=== PATIENT | female | born 1955 | race Caucasian/White ===

== ENCOUNTER 2019-12-27 12:55 | Emergency (ER) | payer BC, MEDICARE ==
[~2019-12-27] VITALS: Ht 167.6 cm; Wt 92.0 kg
[~2019-12-27 12:55] MED LIST: BUDE10.2 INH; FLUO10CA29 PO; PRAV20TA4 PO; TEMA15CA PO
[2019-12-27 13:43] LABS: URINE HCG NEGATIVE (NEG)
[2019-12-27 13:45] LABS: CLARITY,URINE SLIGHTLY CLOUDY (Clear); COLOR,URINE YELLOW (Yellow); GLUCOSE, URINE NEGATIVE (Neg); KETONES,URINE NEGATIVE (Neg); LEUKOCYTE ESTERASE ,URINE SMALL (Neg); NITRITES, URINE NEGATIVE (Neg); OCCULT BLOOD,URINE SMALL (Neg); PH,URINE 6.5 (4.8-8.0); PROTEIN,URINE NEGATIVE (Neg); UROBILINOGEN,URINE 0.2 E.U/dL (0.2-1.0)
[2019-12-27 13:46] LABS: UA COLLECTION TYPE CLN CATCH MIDSTREAM
[2019-12-27 13:48] LABS: BASOPHILS # (AUTO) 0.1 X10'3 (0-0.2); BASOPHILS % (AUTO) 0.6 % (0-1); EOSINOPHILS % (AUTO) 0.3 % (0-6); HEMATOCRIT 45.2 % (35.0-45.0); HEMOGLOBIN 14.7 g/dl (12.0-16.0); LYMPHOCYTES # (AUTO) 3.2 X10'3 (1.1-4.8); LYMPHOCYTES % (AUTO) 26.1 % (21-51); MEAN CORPUSCULAR HEMOGLOBIN 29.2 PG (27.0-31.0); MEAN CORPUSCULAR HGB CONC 32.5 g/dL (33.0-36.5); MEAN CORPUSCULAR VOLUME 89.8 FL (78-98); MEAN PLATELET VOLUME 8.2 FL (7.4-10.4); MONOCYTES # (AUTO) 0.9 X10'3 (0-0.9); MONOCYTES % (AUTO) 7.4 % (2-12); NEUTROPHILS % (AUTO) 65.6 % (42-75); PLATELET COUNT 240 X10'3 (140-440); RED BLOOD COUNT 5.03 X10'6 (4.20-5.60); RED CELL DISTRIBUTION WIDTH 14.4 % (11.5-14.5); WHITE BLOOD COUNT 12.1 X10'3 (4.5-11.0)
[2019-12-27 13:50] LABS: BACTERIA,URINE 1+ /HPF (Neg); MUCUS STRANDS FEW /LPF (Neg); RBC,URINE 0-2 /HPF (0-2); SQUAMOUS EPITHELIAL CELL,UR FEW /LPF (FEW); WBC CLUMPS,URINE MODERATE /HPF (NEGATIVE); WBC,URINE 50-100 /HPF (0-4)
[2019-12-27 13:51] LABS: ALANINE AMINOTRANSFERASE 16 U/L (12-78); ALBUMIN 3.4 G/DL (3.4-5.0); ALBUMIN/GLOBULIN RATIO 0.8 (1.1-1.5); ALKALINE PHOSPHATASE 93 IU/L (46-116); ANION GAP 6 (8-16); ASPARTATE AMINO TRANSFERASE 12 U/L (10-37); BILIRUBIN,TOTAL 0.7 MG/DL (0.1-1.0); BLOOD UREA NITROGEN 8 MG/DL (7-18); BUN/CREATININE RATIO 8.7 (6.6-38.0); CHLORIDE 101 MMOL/L (99-107); CREATININE 0.92 MG/DL (0.40-0.90); GLUCOSE 137 MG/DL (70-104); LIPASE 103 U/L (73-393); POTASSIUM 3.6 MMOL/L (3.5-5.1); SODIUM 136 MMOL/L (135-145); TOTAL CARBON DIOXIDE 28.7 MMOL/L (24-32); TOTAL PROTEIN 7.6 G/DL (6.4-8.2); eGFR 62 ML/MIN
[2019-12-27] MEDS ORDERED: normal saline 1000ML IV soln IVB ONE (14:00)
[2019-12-27] MEDS ORDERED: ondansetron/PF 4mg/2ml inj IV ONE (14:00)
[2019-12-27] MEDS ORDERED: metroNIDAZOLE-Flagyl 500mg/NS 100 ML IV STA (14:39)
[2019-12-27] MEDS ORDERED: amox tr/potassium clavulanate 875/125mg TAB PO ONE (14:40)
[2019-12-27] MEDS ORDERED: ONDA4TAB6 PO (14:44)
[2019-12-27] MEDS ORDERED: METR500T PO (14:44)
[2019-12-27] MEDS ORDERED: AMOX-422 PO (14:44)
[2019-12-27] MEDS ORDERED: morphine 4 MG/ML inj SYRINge IV ONE (15:45)
[2019-12-27 17:07] VITALS: BP 140/76
--- NOTE | 2019-12-30 10:00 | NUR ---
PT CALLED PER DR KEITH TO SEE HOW SHE WAS DOING. PT STATES THAT SHE IS NOT FEELING ANY BETTER AND THE ABX IS MAKING HER VOMIT. PT ADVISED THAT SHE MIGHT WANT TO RETURN TO THE ER FOR FURTHER EVALUATION IS ADDIE IS UNABLE TO CONTACT HER PMD. PT STATES THAT SHE WOULD HAVE TO WAIT TILL HER COMES BACK HOME AND WILL MOST LIKELY COME IN THIS AFTERNOON.
[2020-02-04] MEDS ORDERED: ONDA4TAB6 PO (13:08)
[2020-02-04] MEDS ORDERED: HYDR-4353 PO (13:08)
[2020-02-04] MEDS ORDERED: AMOX-422 PO (13:08)
== END 2019-12-27 17:08 | disposition home or self-care (01) ==
LOC: ER 12:55
DX: K57.32 Diverticulitis of large intestine without perforation or abscess without bleeding (principal); R11.2 Nausea with vomiting, unspecified; R10.32 Left lower quadrant pain; Z88.5 Allergy status to narcotic agent
CPT/HCPCS: 96361; 96365; 96375; 99284; J2270; J2405; J3490; J7030; 36415; 74176; 80053; 81001; 81025; 83690; 85025; 87077; 87088; 87186

== ENCOUNTER 2019-12-30 12:25 | Inpatient (IN) | payer MEDICARE ==
[~2019-12-30] VITALS: Ht 167.6 cm; Wt 92.7 kg
[~2019-12-30 12:25] MED LIST changes: +AMOX-422 PO; +METR500T PO; +ONDA4TAB6 PO
[2019-12-30 13:19] LABS: BASOPHILS % (AUTO) 0.4 % (0-1); EOSINOPHILS # (AUTO) 0.1 X10'3 (0-0.9); EOSINOPHILS % (AUTO) 1.2 % (0-6); HEMATOCRIT 43.3 % (35.0-45.0); HEMOGLOBIN 14.1 g/dl (12.0-16.0); LYMPHOCYTES # (AUTO) 2.2 X10'3 (1.1-4.8); LYMPHOCYTES % (AUTO) 24.2 % (21-51); MEAN CORPUSCULAR HEMOGLOBIN 29.5 PG (27.0-31.0); MEAN CORPUSCULAR HGB CONC 32.6 g/dL (33.0-36.5); MEAN CORPUSCULAR VOLUME 90.2 FL (78-98); MEAN PLATELET VOLUME 8.4 FL (7.4-10.4); MONOCYTES # (AUTO) 0.7 X10'3 (0-0.9); MONOCYTES % (AUTO) 7.7 % (2-12); NEUTROPHILS # (AUTO) 6.1 X10'3 (1.8-7.7); NEUTROPHILS % (AUTO) 66.5 % (42-75); PLATELET COUNT 277 X10'3 (140-440); WHITE BLOOD COUNT 9.2 X10'3 (4.5-11.0)
[2019-12-30 13:25] LABS: ALANINE AMINOTRANSFERASE 14 U/L (12-78); ALBUMIN 3.2 G/DL (3.4-5.0); ALBUMIN/GLOBULIN RATIO 0.8 (1.1-1.5); ALKALINE PHOSPHATASE 80 IU/L (46-116); ANION GAP 6 (8-16); ASPARTATE AMINO TRANSFERASE 15 U/L (10-37); BILIRUBIN,TOTAL 0.3 MG/DL (0.1-1.0); BLOOD UREA NITROGEN 5 MG/DL (7-18); BUN/CREATININE RATIO 6.1 (6.6-38.0); CALCIUM 9.3 MG/DL (8.5-10.1); CHLORIDE 103 MMOL/L (99-107); CREATININE 0.82 MG/DL (0.40-0.90); GLUCOSE 112 MG/DL (70-104); LIPASE 107 U/L (73-393); POTASSIUM 4.1 MMOL/L (3.5-5.1); SODIUM 139 MMOL/L (135-145); TOTAL CARBON DIOXIDE 30.2 MMOL/L (24-32); TOTAL PROTEIN 7.1 G/DL (6.4-8.2); eGFR 71 ML/MIN
[2019-12-30] MEDS ORDERED: morphine 4 MG/ML inj SYRINge IV ONE (14:45)
[2019-12-30] MEDS ORDERED: iohexol 300mg/ml 100ml inj. ONE (14:59)
[2019-12-30] MEDS ORDERED: piperacillin/tazo 3.375gm/50ml 50 ML IV SCH (16:45)
[2019-12-30] MEDS ORDERED: piperacillin/tazo 3.375gm/50ml 50 ML IV ONE (16:49)
[2019-12-30 17:12] LABS: URINE HCG NEGATIVE (NEG)
[2019-12-30 17:14] LABS: CLARITY,URINE CLEAR (Clear); COLOR,URINE YELLOW (Yellow); GLUCOSE, URINE NEGATIVE (Neg); KETONES,URINE 15 mg/dl (Neg); LEUKOCYTE ESTERASE ,URINE NEGATIVE (Neg); NITRITES, URINE NEGATIVE (Neg); OCCULT BLOOD,URINE NEGATIVE (Neg); PH,URINE 6.5 (4.8-8.0); PROTEIN,URINE NEGATIVE (Neg); UROBILINOGEN,URINE 0.2 E.U/dL (0.2-1.0)
[2019-12-30] MEDS ORDERED: magnesium hydroxide 30ml (MOM) UD suspension PO PRN (17:15)
[2019-12-30] MEDS ORDERED: acetaminophen 325mg tablet PO PRN (17:15)
[2019-12-30] MEDS ORDERED: mag hydrox/Alum hydrox/simeth 30ml oral suspension PO PRN (17:15)
[2019-12-30] MEDS ORDERED: FLUO20CA39 PO (17:21)
[2019-12-30 17:25] LABS: UA COLLECTION TYPE CLN CATCH MIDSTREAM
[2019-12-30] MEDS: normal saline 1000ml 1,000 ML IV SCH (17:37)
[2019-12-30] MEDS: HYDROmorphone 1 mg/ml syringe IV PRN (17:52)
--- NOTE | 2019-12-30 21:02 | NUR ---
PT WITH MINIMAL PAIN AND STABLE VS. AWAITING IPA. PT UP TO BR TO VOID. AMBULATING WITH STEADY GAIT. PT IS POLITE AND COOPERATIVE WITH CARE.
[2019-12-30] MEDS: ondansetron/PF 4mg/2ml inj IV PRN (21:33)
--- NOTE | 2019-12-30 21:35 | NUR ---
pt nauseauated, rnmila , to check on availability of antiemetic and get it to her
[2019-12-30] MEDS: heparin, porcine 5000 units/ml vial SQ SCH (21:40)
[2019-12-31] VITALS (7 sets, daily range): BP systolic 93–146; BP diastolic 40–71
[2019-12-31] MEDS: piperacillin/tazo 4.5gm/100ml 100 ML IV SCH ×3 (00:57→16:36)
[2019-12-31] MEDS: normal saline 1000ml 1,000 ML IV SCH ×3 (00:57→23:12)
[2019-12-31] MEDS: HYDROmorphone 1 mg/ml syringe IV PRN ×3 (00:58→21:11)
--- NOTE | 2019-12-31 06:49 | NUR ---
Patient in room PCU 3017. I have received report from Len HICKEY and had the opportunity to ask questions and assume patient care.
[2019-12-31 07:22] LABS: BASOPHILS % (AUTO) 0.5 % (0-1); EOSINOPHILS # (AUTO) 0.1 X10'3 (0-0.9); EOSINOPHILS % (AUTO) 1.9 % (0-6); HEMATOCRIT 37.3 % (35.0-45.0); HEMOGLOBIN 12.1 g/dl (12.0-16.0); LYMPHOCYTES # (AUTO) 2.1 X10'3 (1.1-4.8); LYMPHOCYTES % (AUTO) 32.2 % (21-51); MEAN CORPUSCULAR HEMOGLOBIN 29.2 PG (27.0-31.0); MEAN CORPUSCULAR HGB CONC 32.5 g/dL (33.0-36.5); MEAN CORPUSCULAR VOLUME 89.9 FL (78-98); MEAN PLATELET VOLUME 8.7 FL (7.4-10.4); MONOCYTES # (AUTO) 0.5 X10'3 (0-0.9); MONOCYTES % (AUTO) 8.3 % (2-12); NEUTROPHILS # (AUTO) 3.7 X10'3 (1.8-7.7); NEUTROPHILS % (AUTO) 57.1 % (42-75); PLATELET COUNT 226 X10'3 (140-440); RED BLOOD COUNT 4.15 X10'6 (4.20-5.60); RED CELL DISTRIBUTION WIDTH 13.8 % (11.5-14.5); WHITE BLOOD COUNT 6.5 X10'3 (4.5-11.0)
[2019-12-31 07:24] LABS: ALBUMIN 2.7 G/DL (3.4-5.0); ANION GAP 7 (8-16); BLOOD UREA NITROGEN 7 MG/DL (7-18); BUN/CREATININE RATIO 8.2 (6.6-38.0); CALCIUM 8.5 MG/DL (8.5-10.1); CHLORIDE 105 MMOL/L (99-107); CREATININE 0.85 MG/DL (0.40-0.90); GLUCOSE 106 MG/DL (70-104); POTASSIUM 3.5 MMOL/L (3.5-5.1); SODIUM 141 MMOL/L (135-145); TOTAL CARBON DIOXIDE 28.9 MMOL/L (24-32); eGFR 68 ML/MIN
[2019-12-31] MEDS: FLUoxetine 20mg capsule PO SCH (08:38)
[2019-12-31] MEDS: heparin, porcine 5000 units/ml vial SQ SCH ×2 (08:39→18:54)
[2019-12-31] MEDS: ondansetron/PF 4mg/2ml inj IV PRN (11:18)
--- NOTE | 2019-12-31 12:31 | NUR ---
Paged Dr. Luis
--- NOTE | 2019-12-31 12:38 | NUR ---
Paged Dr. Luis. Toyin Block. [id number]. HOLLEY Carter just spoke with the patient and said he is going to wait a few days on getting the second CTA. Oscar [id number]
[2019-12-31] MEDS: HYDROmorphone inj. 0.5 MG/0.5 ML DISP.SYRIN IV PRN (17:28)
--- NOTE | 2019-12-31 18:16 | NUR ---
Problems reprioritized. Patient report given, questions answered & plan of care reviewed with Len RN.
[2019-12-31] MEDS: diatr meglu/diatrizoate 30ml oral sol.-(3 dose) bottle PO SCH (21:11)
[2020-01-01] MEDS: piperacillin/tazo 4.5gm/100ml 100 ML IV SCH ×4 (00:21→23:07)
[2020-01-01 02:00] VITALS: BP 111/55
[2020-01-01] MEDS: normal saline 1000ml 1,000 ML IV SCH ×2 (02:59→19:12)
[2020-01-01] MEDS: HYDROmorphone 1 mg/ml syringe IV PRN ×2 (05:34→13:07)
[2020-01-01 05:55] LABS: BASOPHILS % (AUTO) 0.5 % (0-1); EOSINOPHILS # (AUTO) 0.1 X10'3 (0-0.9); EOSINOPHILS % (AUTO) 1.9 % (0-6); HEMOGLOBIN 11.8 g/dl (12.0-16.0); LYMPHOCYTES # (AUTO) 1.7 X10'3 (1.1-4.8); LYMPHOCYTES % (AUTO) 26.6 % (21-51); MEAN CORPUSCULAR HEMOGLOBIN 30.1 PG (27.0-31.0); MEAN CORPUSCULAR HGB CONC 32.7 g/dL (33.0-36.5); MEAN CORPUSCULAR VOLUME 92.1 FL (78-98); MEAN PLATELET VOLUME 8.3 FL (7.4-10.4); MONOCYTES # (AUTO) 0.4 X10'3 (0-0.9); MONOCYTES % (AUTO) 6.9 % (2-12); NEUTROPHILS # (AUTO) 4.1 X10'3 (1.8-7.7); NEUTROPHILS % (AUTO) 64.1 % (42-75); PLATELET COUNT 209 X10'3 (140-440); RED BLOOD COUNT 3.91 X10'6 (4.20-5.60); RED CELL DISTRIBUTION WIDTH 13.8 % (11.5-14.5); WHITE BLOOD COUNT 6.4 X10'3 (4.5-11.0)
[2020-01-01 06:01] LABS: ALBUMIN 2.3 G/DL (3.4-5.0); ANION GAP 5 (8-16); BLOOD UREA NITROGEN 4 MG/DL (7-18); BUN/CREATININE RATIO 5.2 (6.6-38.0); CALCIUM 8.3 MG/DL (8.5-10.1); CHLORIDE 106 MMOL/L (99-107); CREATININE 0.77 MG/DL (0.40-0.90); GLUCOSE 92 MG/DL (70-104); SODIUM 140 MMOL/L (135-145); TOTAL CARBON DIOXIDE 28.8 MMOL/L (24-32); eGFR 76 ML/MIN
--- NOTE | 2020-01-01 06:24 | NUR ---
Problems reprioritized. Patient report given, questions answered & plan of care reviewed with Oscar HICKEY.
--- NOTE | 2020-01-01 06:32 | NUR ---
Patient in room PCU 3017. I have received report from Len HICKEY and had the opportunity to ask questions and assume patient care.
[2020-01-01 07:00] VITALS: BP 105/44
[2020-01-01] MEDS: diatr meglu/diatrizoate 30ml oral sol.-(3 dose) bottle PO SCH ×2 (07:00→16:02)
--- NOTE | 2020-01-01 07:10 | NUR ---
Page Dr. Argueta. Toyin Block. [id number]. I saw that you canceled the patients CTA for this morning. Dr. Carter had originally wanted it today. Just want to confirm that it will not be being done today. TY. Oscar [id number]
[2020-01-01] MEDS: heparin, porcine 5000 units/ml vial SQ SCH ×2 (08:10→19:37)
[2020-01-01] MEDS: FLUoxetine 20mg capsule PO SCH (08:10)
[2020-01-01] MEDS ORDERED: diatr meglu/diatrizoate 30ml oral sol.-(3 dose) bottle PO ONE (10:25)
[2020-01-01 11:00] VITALS: BP 134/54
--- NOTE | 2020-01-01 11:28 | NUR ---
Problems reprioritized. Patient report given, questions answered & plan of care reviewed with Diana HICKEY.
[2020-01-01 11:52] VITALS: BP 105/44
[2020-01-01] MEDS: ondansetron/PF 4mg/2ml inj IV PRN (12:08)
--- NOTE | 2020-01-01 12:30 | NUR ---
Patient safe for [facility] per MD orders. Report called to Diana HICKEY, belongings collected and sent with patient by wheelchair by Josi HICKEY resource while at lunch.
[2020-01-01] MEDS ORDERED: iohexol 300mg/ml 100ml inj. ONE (15:58)
--- NOTE | 2020-01-01 18:10 | NUR ---
Patient in room MOE 340. I have received report from Angeles HICKEY and had the opportunity to ask questions and assume patient care.
[2020-01-01] MEDS: HYDROmorphone inj. 0.5 MG/0.5 ML DISP.SYRIN IV PRN (19:38)
[2020-01-01 20:00] VITALS: BP 109/64
[2020-01-02] VITALS (11 sets, daily range): BP systolic 91–140; BP diastolic 50–62
[2020-01-02] MEDS: HYDROmorphone 1 mg/ml syringe IV PRN ×4 (04:53→21:08)
--- NOTE | 2020-01-02 04:56 | NUR ---
Pt states that she passed a small amount of gas
[2020-01-02] MEDS: ondansetron/PF 4mg/2ml inj IV PRN (05:22)
[2020-01-02] MEDS: normal saline 1000ml 1,000 ML IV SCH ×3 (05:48→21:11)
--- NOTE | 2020-01-02 06:00 | NUR ---
Problems reprioritized. Patient report given, questions answered & plan of care reviewed with Toyin HICKEY.
--- NOTE | 2020-01-02 06:37 | NUR ---
Patient in room MOE 340. I have received report from Piper HICKEY and had the opportunity to ask questions and assume patient care.
[2020-01-02 06:41] LABS: BASOPHILS % (AUTO) 0.7 % (0-1); EOSINOPHILS # (AUTO) 0.1 X10'3 (0-0.9); EOSINOPHILS % (AUTO) 2.6 % (0-6); HEMOGLOBIN 11.8 g/dl (12.0-16.0); LYMPHOCYTES # (AUTO) 1.5 X10'3 (1.1-4.8); LYMPHOCYTES % (AUTO) 26.3 % (21-51); MEAN CORPUSCULAR HEMOGLOBIN 29.7 PG (27.0-31.0); MEAN CORPUSCULAR HGB CONC 32.8 g/dL (33.0-36.5); MEAN CORPUSCULAR VOLUME 90.5 FL (78-98); MEAN PLATELET VOLUME 8.4 FL (7.4-10.4); MONOCYTES # (AUTO) 0.4 X10'3 (0-0.9); MONOCYTES % (AUTO) 6.7 % (2-12); NEUTROPHILS # (AUTO) 3.6 X10'3 (1.8-7.7); NEUTROPHILS % (AUTO) 63.7 % (42-75); PLATELET COUNT 221 X10'3 (140-440); RED BLOOD COUNT 3.98 X10'6 (4.20-5.60); RED CELL DISTRIBUTION WIDTH 13.8 % (11.5-14.5); WHITE BLOOD COUNT 5.7 X10'3 (4.5-11.0)
--- NOTE | 2020-01-02 06:46 | NUR ---
Patient in room MOE 340. I have received report from Piper HICKEY and had the opportunity to ask questions and assume patient care. Patient resting in bed, all needs met tat this time.
[2020-01-02 06:52] LABS: PARTIAL THROMBOPLASTIN TIME 30 SECONDS (22-32)
[2020-01-02 06:57] LABS: ALBUMIN 2.4 G/DL (3.4-5.0); ANION GAP 10 (8-16); BLOOD UREA NITROGEN 3 MG/DL (7-18); BUN/CREATININE RATIO 4.2 (6.6-38.0); CALCIUM 8.4 MG/DL (8.5-10.1); CHLORIDE 104 MMOL/L (99-107); CREATININE 0.72 MG/DL (0.40-0.90); GLUCOSE 87 MG/DL (70-104); POTASSIUM 3.8 MMOL/L (3.5-5.1); SODIUM 141 MMOL/L (135-145); eGFR 82 ML/MIN
[2020-01-02] MEDS: piperacillin/tazo 4.5gm/100ml 100 ML IV SCH ×3 (07:19→23:44)
[2020-01-02] MEDS: FLUoxetine 20mg capsule PO SCH (07:19)
[2020-01-02] MEDS: heparin, porcine 5000 units/ml vial SQ SCH ×2 (07:40→22:34)
[2020-01-02] MEDS ORDERED: insulin Lispro (HumaLOG) vial - multi-dose SQ SCH (13:15)
[2020-01-02] MEDS ORDERED: glucagon, human recombinant 1mg kit SUBCUT PRN (13:15)
[2020-01-02] MEDS ORDERED: dextrose ORAL solution 15 GM/59 ML bottle PO PRN ×2 (13:15)
[2020-01-02] MEDS ORDERED: dextrose 50%-water 50ml dispensing syringe IV PRN ×2 (13:15)
[2020-01-02] MEDS ORDERED: MESSAGE TO PHARMACY PO ONE (13:15)
--- NOTE | 2020-01-02 13:53 | NUR ---
Preop BS 67, new order from Dr. Argueta for hypoglycemic protol. Administered dextrose per protocol. Fifteen minutes later BS 134. Will continue to monitor.
[2020-01-02 14:27] LABS: ALANINE AMINOTRANSFERASE 19 U/L (12-78); ALBUMIN/GLOBULIN RATIO 0.7 (1.1-1.5); ALKALINE PHOSPHATASE 95 IU/L (46-116); ASPARTATE AMINO TRANSFERASE 22 U/L (10-37); BILIRUBIN,TOTAL 0.3 MG/DL (0.1-1.0)
[2020-01-02] MEDS ORDERED: ceFAZolin 1000mg inj ONE (15:37)
[2020-01-02] MEDS ORDERED: BUPIVAcaine/PF 2.5 mg/ml (0.25%) 30ml vial ONE ×2 (15:38→15:56)
[2020-01-02] MEDS ORDERED: ringers solution, lacted 1,000 ML IV SCH (15:43)
[2020-01-02] MEDS ORDERED: proCHLORperazine 10 MG/2 ml inj IV PRN (15:45)
[2020-01-02] MEDS ORDERED: morphine 2 MG/ML inj. syringe IV PRN (15:45)
[2020-01-02] MEDS ORDERED: ondansetron/PF 4mg/2ml inj IV PRN (15:45)
[2020-01-02] MEDS ORDERED: acetaminophen 1,000mg/100ml IV 100 ML IV PRN (15:45)
[2020-01-02] MEDS ORDERED: HYDROmorphone inj. 0.5 MG/0.5 ML DISP.SYRIN IV PRN ×2 (15:45)
[2020-01-02] MEDS ORDERED: meperidine/PF 25mg/ml syringe IV PRN (15:45)
[2020-01-02] MEDS ORDERED: morphine 4 MG/ML inj SYRINge IV PRN (15:45)
[2020-01-02] MEDS ORDERED: sevoflurane 250ml liquid IH ONE (15:56)
[2020-01-02] MEDS ORDERED: neostigmine methylsulfate 1 MG/ML 10ml vial ONE (15:56)
[2020-01-02] MEDS ORDERED: BUPIVACAINE liposomal/PF 13.3 MG/ML vial IM ONE (15:56)
[2020-01-02] MEDS ORDERED: glycopyrrolate 0.2mg/ml inj ONE (15:56)
[2020-01-02] MEDS ORDERED: midazolam 2 mg/2 ml injection ONE (15:58)
[2020-01-02] MEDS ORDERED: fentaNYL /PF 50mcg/ml 5ml ampule ONE (16:02)
[2020-01-02] MEDS ORDERED: LIDOcaine 2% 5ml jelly ONE (16:02)
[2020-01-02] MEDS ORDERED: rocuronium 10mg/ml inj IV ONE ×2 (16:03→16:58)
[2020-01-02] MEDS ORDERED: ondansetron/PF 4mg/2ml inj ONE (16:58)
[2020-01-02] MEDS ORDERED: propofol inj 20 ML IV ONE (16:58)
[2020-01-02] MEDS ORDERED: ceFOXitin 1000 MG inj ONE ×2 (16:58)
[2020-01-02] MEDS ORDERED: LIDOcaine 2% (20mg/ml) 5ml vial ONE (16:58)
[2020-01-02] MEDS ORDERED: dexamethasone sod phosphate 4mg/ml inj. ONE (16:58)
--- NOTE | 2020-01-02 18:22 | NUR ---
Problems reprioritized. Patient report given, questions answered & plan of care reviewed with RUPERTO Gautam.
--- NOTE | 2020-01-02 19:05 | NUR ---
Received from OR via BED WITH [facility] , accompanied by Anesthesiologist KITTY and report given by Anesthesiolgist. PATIENT WITH 20G PIV IN LEFT UE, PATIENT WITH CRAMER CATHETER PRESENT WITH CLEAR YELLOW URINE. 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 NO DRAINAGE PRESENT. 10L MASK ON WITH 98% SATURATIONS. Addendum: 01/02/20 at 6 by Abdulaziz Holt RN, RN Amended: Links added.
--- NOTE | 2020-01-02 19:55 | NUR ---
Report called to receiving nurse. Transferred via SURRGICAL BED WITH NO Belongings . Special Issues communicated to receiving nurse ELIZABETH HICKEY WHO WAS PRESENT TO ASSIST IN SET UP OF PATIENT UPON ARRIVAL TO THE FLOOR. ATTEMPTED TO GATCH LE'S- UNABLE DUE TO BED MALFUNCTION. Addendum: 01/02/20 at 2006 by Abdulaziz Holt RN, RN Amended: Links added.
--- NOTE | 2020-01-02 20:34 | NUR ---
Patient had Zosyn schedule for 1600. Patient was in surgery. Spoke to Pharmacist to give next dose at schedule time.
[2020-01-02] MEDS: insulin glargine (Lantus) pen - multi-dose SQ SCH (21:00)
--- NOTE | 2020-01-02 22:36 | NUR ---
Patient extremely painful even after 1mg of dilaudid given. MD notified to start patient on a dilaudid cadd pump MD inform of patient's EBL of 600ml in surgery earlier tonight and some oozing of blood in her ostomy-HOLD HEPARIN tonight.
[2020-01-02] MEDS ORDERED: naloxone 0.4 mg/ml inj IV PRN (22:40)
[2020-01-02] MEDS ORDERED: CADD PCA waste documentation MC SCH (22:40)
[2020-01-02] MEDS: HYDROmorphone/NS 1 mg/ml CADD 50 ML IV SCH (23:31)
--- NOTE | 2020-01-02 23:49 | NUR ---
Dilaudid cadd started. Patient given an initial bolus dose pain 10/10. FINANCIAL AID ADVISOR educated. Patient states understanding of use. Will continue to monitor.
[2020-01-03] VITALS: BP 113/61
[2020-01-03] MEDS: HYDROmorphone/NS 1 mg/ml CADD 50 ML IV SCH ×12 (01:00→23:00)
[2020-01-03 03:48] VITALS: BP 107/50
[2020-01-03 05:04] LABS: BASOPHILS % (AUTO) 0.1 % (0-1); EOSINOPHILS % (AUTO) 0 % (0-6); HEMATOCRIT 35.9 % (35.0-45.0); HEMOGLOBIN 11.6 g/dl (12.0-16.0); LYMPHOCYTES # (AUTO) 0.6 X10'3 (1.1-4.8); LYMPHOCYTES % (AUTO) 7.6 % (21-51); MEAN CORPUSCULAR HEMOGLOBIN 29.1 PG (27.0-31.0); MEAN CORPUSCULAR HGB CONC 32.4 g/dL (33.0-36.5); MEAN CORPUSCULAR VOLUME 89.8 FL (78-98); MEAN PLATELET VOLUME 8.9 FL (7.4-10.4); MONOCYTES # (AUTO) 0.5 X10'3 (0-0.9); MONOCYTES % (AUTO) 6.4 % (2-12); NEUTROPHILS % (AUTO) 85.9 % (42-75); PLATELET COUNT 246 X10'3 (140-440); RED CELL DISTRIBUTION WIDTH 13.7 % (11.5-14.5); WHITE BLOOD COUNT 8.2 X10'3 (4.5-11.0)
[2020-01-03 05:23] LABS: ALBUMIN 2.3 G/DL (3.4-5.0); ANION GAP 10 (8-16); BLOOD UREA NITROGEN 4 MG/DL (7-18); BUN/CREATININE RATIO 4.6 (6.6-38.0); CALCIUM 8.2 MG/DL (8.5-10.1); CHLORIDE 104 MMOL/L (99-107); CREATININE 0.87 MG/DL (0.40-0.90); GLUCOSE 157 MG/DL (70-104); SODIUM 138 MMOL/L (135-145); TOTAL CARBON DIOXIDE 23.9 MMOL/L (24-32); eGFR 66 ML/MIN
[2020-01-03 07:14] VITALS: BP 117/94
[2020-01-03] MEDS: piperacillin/tazo 4.5gm/100ml 100 ML IV SCH (07:35)
[2020-01-03] MEDS: heparin, porcine 5000 units/ml vial SQ SCH ×2 (07:36→21:31)
[2020-01-03] MEDS: FLUoxetine 20mg capsule PO SCH (07:40)
[2020-01-03 11:00] VITALS: BP 143/65
--- NOTE | 2020-01-03 13:46 | NUR ---
OSTOMY FACTS: Almost everyone has know of, or met, businessmen, entertainers, athletes, and people from all walks of life who have an ostomy. Ostomates (a person that has an ostomy) can ski, ride horses, bowl, and get healthy exercise in countless ways. Your usual activities of daily living can be resumed as soon as you are able. Gradually you will be able to wear the clothes worn before surgery. With modern pouches, nothing is noticeable under your clothing. It may be difficult at first to believe that an intimate relationship can be possible when one's body has been disfigured by surgery. This is not true. Love, fortunately, is not easily destroyed when it is based on genuine appreciation of a person as a thinking, feeling, reacting human being. AN OSTOMY IS NOT AN IMPAIRMENT!! DEFINITIONS: 1.OSTOMY: An opening that is created by a surgical procedure. The opening is called a "stoma". 2.STOMA: A surgical opening in the abdomen (belly) where intestine is brought through the abdominal wall and connected at the skin level. A stoma is shiny, wet and at first is dark purple but eventually turns pink, similar to the inside lining of your mouth. 3.COLON: A portion of the large bowel. 4.COLOSTOMY: A fecal diversion with an opening, (stoma) created anywhere along the colon. Making a connection between the colon and the abdominal wall. 5.ILLEOSTOMY: A fecal diversion with an opening, (stoma) created in the small intestine. Making a connection between the small intestine and the abdominal wall. 6.UROSTOMY: A urinary diversion with the ureters connected to a segment of the small bowel and one end is brought out and connected to the abdominal wall, creating a stoma. SHAPES and SIZES: "The stoma is usually round or oval. "It is anywhere from a dime to half dollar in size. "A stoma reaches its permanent size 6-8 weeks after surgery. PRODUCTS: 1.POUCH or APPLIANCE: An external device to contain stool or urine output and protect the skin around the stoma. It can be a one piece pouch or two pieces (a pouch and a wafer). 2.BARRIER: Substance that is used to protect the skin around the stoma from drainage and adhesive. 3.SKIN PREP or SEALANT: Product applied to the skin to reduce injury from moisture, drainage, or repeated pouch removal. Available in spray or wipes. 4.CLOSURE or CLAMP: A device used to close the bottom of a drainable pouch. 5.BRIDGE or LEONARD: A piece of plastic placed under a loop of bowel on the skins surface, to secure the bowel in place while the skin heals. POUCH CHANGE PROCEEDURE: 1.Assemble all the supplies "1 or 2 piece appliance "Ostomy paste (if needed) "Ostomy powder (if needed) "Skin prep wipes ( not recommended with coloplast products) "Moist wash cloth or cotton balls 2.Remove plastic center and paper backing from pouch. If pouch or wafer is not precut, use the sizing guide, or plastic backing from pouch to make a pattern. Do this by placing the paper over the stoma and trace it, or draw a pattern. Cut the wafer to fit and set it aside. 3.Remove old pouch by lifting up on tape while pressing skin down away from the tape. If there is a clip on your pouch, remove it and save it. 4.Clean skin or stoma with moistened wash cloth or cotton balls. Place a clean cotton ball over stoma hole to catch any drainage. Let skin dry. 5.For grooves or uneven areas in the skin- apply ostomy paste and sprinkle with ostomy powder, then gently shape the past so the area around the stoma is smooth and as flat as possible. Wipe off or blow away excess. Blot powder with skin prep wipe (DO NOT wipe powder). Let dry until no longer sticky. 6.For irritated or reddened skin- sprinkle ostomy powder on red or irritated area. Wipe off or blow away excess. Blot powder with skin prep wipe (DO NOT wipe powder). Let dry until no longer sticky. 7.Apply skin prep wipe to skin to which the pouch and tape will adhere. Let dry until no longer sticky. 8.If you have a one piece appliance- apply pouch so it is centered around the stoma. No skin should be exposed to stool. All skin should be covered by paste or pouch. 9.If you have a two piece appliance- Apply the wafer as described above, then snap or stick pouch onto wafer. Check to make sure wafer and pouch are securely connected. 10.Place clip on bottom of pouch. 11.Empty pouch when 1/3 full. OSTOMY SKIN CARE: "Good health care and nutrition are essential for healthy skin. "Usually a correct pouch size will prevent skin breakdown. "Use warm water and soap for skin cleansing. "Do not use creams or oil based products on skin around the stoma. This will prevent the appliance from sticking. "Use skin prep around the stoma. IT CAN TAKE 24 HOURS TO SEVERAL DAYS FOR SKIN TO HEAL. IF IT IS NOT RESOLVING, OR GETTING WORSE, CALL YOUR PRIMARY CARE DOCTOR. Addendum: 01/03/20 at 1347 by Daryn Prasad RN Amended: Links added.
[2020-01-03] MEDS: normal saline 1000ml 1,000 ML IV SCH ×2 (15:11→21:31)
--- NOTE | 2020-01-03 15:30 | NUR ---
CRAMER CATH DC, PT TOLERATED WELL
[2020-01-03] MEDS: fluconazole 100mg tablet PO SCH (16:21)
[2020-01-03] MEDS: piperacillin/tazo 3.375gm/50ml 50 ML IV SCH (16:21)
[2020-01-03 18:00] VITALS: BP 111/64
[2020-01-03 20:00] VITALS: BP 111/64
[2020-01-03] MEDS: insulin glargine (Lantus) pen - multi-dose SQ SCH (21:00)
--- NOTE | 2020-01-03 21:55 | NUR ---
Patient would like her Blood Sugar. Check at 0200 only. States she feels fine right now and does not feel like her Blood sugar is low.
--- NOTE | 2020-01-03 22:18 | NUR ---
Patient got up to the bathroom and voided only 50ml of urine. Bladder scan showed 88 in bladder will continue to assess.
[2020-01-04] VITALS: BP 110/53
[2020-01-04] MEDS: HYDROmorphone/NS 1 mg/ml CADD 50 ML IV SCH ×12 (01:00→23:00)
[2020-01-04] MEDS: piperacillin/tazo 3.375gm/50ml 50 ML IV SCH ×4 (01:01→23:48)
--- NOTE | 2020-01-04 02:30 | NUR ---
Encourage patient to ambulate but was too painful. Patient did get up to the bathroom and voided 100ml. Did a post residual bladder scan and which reveal 170ml in her bladder. Will continue to monitor.
--- NOTE | 2020-01-04 05:00 | NUR ---
Patient up ambulated 300ft. Patient voided in BR 100ml. Bladder scan showed 120ml. Patient lungs clears, no edema noted. Will continue with care.
--- NOTE | 2020-01-04 06:21 | NUR ---
Problems reprioritized. Patient report given, questions answered & plan of care reviewed with Vivienne HICKEY.
[2020-01-04 06:33] LABS: BASOPHILS % (AUTO) 0.2 % (0-1); EOSINOPHILS % (AUTO) 0.3 % (0-6); HEMATOCRIT 32.8 % (35.0-45.0); HEMOGLOBIN 10.8 g/dl (12.0-16.0); LYMPHOCYTES # (AUTO) 1.8 X10'3 (1.1-4.8); LYMPHOCYTES % (AUTO) 16.9 % (21-51); MEAN CORPUSCULAR HEMOGLOBIN 29.9 PG (27.0-31.0); MEAN CORPUSCULAR HGB CONC 32.9 g/dL (33.0-36.5); MEAN CORPUSCULAR VOLUME 90.8 FL (78-98); MEAN PLATELET VOLUME 8.8 FL (7.4-10.4); MONOCYTES # (AUTO) 0.7 X10'3 (0-0.9); MONOCYTES % (AUTO) 6.4 % (2-12); NEUTROPHILS # (AUTO) 7.9 X10'3 (1.8-7.7); NEUTROPHILS % (AUTO) 76.2 % (42-75); PLATELET COUNT 265 X10'3 (140-440); RED BLOOD COUNT 3.61 X10'6 (4.20-5.60); RED CELL DISTRIBUTION WIDTH 13.8 % (11.5-14.5); WHITE BLOOD COUNT 10.4 X10'3 (4.5-11.0)
[2020-01-04 06:44] LABS: ALBUMIN 2.3 G/DL (3.4-5.0); ANION GAP 8 (8-16); BLOOD UREA NITROGEN 8 MG/DL (7-18); BUN/CREATININE RATIO 8.6 (6.6-38.0); CALCIUM 8.7 MG/DL (8.5-10.1); CHLORIDE 105 MMOL/L (99-107); CREATININE 0.93 MG/DL (0.40-0.90); GLUCOSE 147 MG/DL (70-104); POTASSIUM 3.5 MMOL/L (3.5-5.1); SODIUM 140 MMOL/L (135-145); TOTAL CARBON DIOXIDE 27.3 MMOL/L (24-32); eGFR 61 ML/MIN
[2020-01-04 07:00] VITALS: BP 113/65
[2020-01-04] MEDS: normal saline 1000ml 1,000 ML IV SCH ×2 (07:12→11:27)
[2020-01-04] MEDS: FLUoxetine 20mg capsule PO SCH (07:30)
[2020-01-04] MEDS: fluconazole 100mg tablet PO SCH (07:31)
[2020-01-04] MEDS: heparin, porcine 5000 units/ml vial SQ SCH ×2 (07:31→19:02)
[2020-01-04 11:40] VITALS: BP 115/53
[2020-01-04 18:00] VITALS: BP 113/55
--- NOTE | 2020-01-04 18:16 | NUR ---
Problems reprioritized. Patient report given, questions answered & plan of care reviewed with FRANCY HICKEY.
--- NOTE | 2020-01-04 18:16 | NUR ---
Patient in room MOE 340. I have received report from Vivienne HICKEY and had the opportunity to ask questions and assume patient care.
[2020-01-04] MEDS: ondansetron/PF 4mg/2ml inj IV PRN (19:02)
[2020-01-04] MEDS: insulin glargine (Lantus) pen - multi-dose SQ SCH (21:00)
[2020-01-05] VITALS: BP 169/70
[2020-01-05] MEDS: HYDROmorphone/NS 1 mg/ml CADD 50 ML IV SCH ×5 (01:00→09:00)
[2020-01-05] MEDS: normal saline 1000ml 1,000 ML IV SCH (04:06)
--- NOTE | 2020-01-05 06:23 | NUR ---
Problems reprioritized. Patient report given, questions answered & plan of care reviewed with Priscila HICKEY.
--- NOTE | 2020-01-05 06:34 | NUR ---
Patient in room MOE 340. I have received report from Christie HICKEY and had the opportunity to ask questions and assume patient care.
[2020-01-05 07:00] VITALS: BP 110/62
[2020-01-05] MEDS: piperacillin/tazo 3.375gm/50ml 50 ML IV SCH ×2 (07:47→16:56)
[2020-01-05] MEDS: FLUoxetine 20mg capsule PO SCH (07:47)
[2020-01-05] MEDS: heparin, porcine 5000 units/ml vial SQ SCH ×2 (07:48→21:32)
--- NOTE | 2020-01-05 09:12 | NUR ---
Dr. De La Cruz in to see patient. He is ok with stoma appearance, states to leave current colostomy appliance on even though stoma is hard to visualize completely, stoma is red but appears shallow. Will continue to monitor.
[2020-01-05] MEDS ORDERED: magnesium hydroxide 30ml (MOM) UD suspension PO ONE (09:35)
[2020-01-05] MEDS ORDERED: HYDROcodone/acetaminophen 5mg/325mg tablet PO PRN (11:10)
[2020-01-05] MEDS ORDERED: HYDROmorphone inj. 0.5 MG/0.5 ML DISP.SYRIN IV PRN (11:10)
[2020-01-05 11:30] VITALS: BP 111/59
--- NOTE | 2020-01-05 15:23 | NUR ---
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 50ml output so far today per I&O. Pt seen by SRUTHI for written/verbal Ileostomy diet ed w/ RD contact information provided. Pt advanced to regular diet post-op; SRUTHI d/w RN regarding diet advancement to low fiber. MD is agreeable and diet updated in EMR. Pt PO pending at this time PO 75% clears last night. Will continue to monitor. Rec: 1. continue low fiber diet per MD 2. monitor for ONS needs post-op 3. monitor Ileostomy output 4. weekly wts Addendum: 01/05/20 at [address] Amended: Links added.
--- NOTE | 2020-01-05 18:03 | NUR ---
Problems reprioritized. Patient report given, questions answered & plan of care reviewed with Tawnya Lewis RN.
--- NOTE | 2020-01-05 18:20 | NUR ---
Patient in room MOE 340. I have received report from RUPERTO Francois and had the opportunity to ask questions and assume patient care.
[2020-01-05 20:00] VITALS: BP 103/57
[2020-01-05] MEDS: HYDROmorphone 1 mg/ml syringe IV PRN (20:02)
[2020-01-05] MEDS: insulin glargine (Lantus) pen - multi-dose SQ SCH (21:00)
[2020-01-05] MEDS: lactobacillus rhamnosus 10,000 MMU CELLS/CAPSULE PO SCH (21:32)
[2020-01-05] MEDS: HYDROcodone/acetaminophen 10/325mg tab PO PRN (21:33)
[2020-01-05 23:25] VITALS: BP 107/54
[2020-01-06] MEDS: HYDROmorphone 1 mg/ml syringe IV PRN ×2 (00:46→23:01)
[2020-01-06] MEDS: piperacillin/tazo 3.375gm/50ml 50 ML IV SCH ×3 (00:47→16:18)
--- NOTE | 2020-01-06 02:22 | NUR ---
Ileostomy continues to leak. Changed collection device x 3.
[2020-01-06] MEDS: HYDROcodone/acetaminophen 10/325mg tab PO PRN ×3 (06:56→16:17)
--- NOTE | 2020-01-06 07:00 | NUR ---
Patient in room MOE 340. I have received report from Tawnya Rosa and had the opportunity to ask questions and assume patient care.
--- NOTE | 2020-01-06 07:00 | NUR ---
Problems reprioritized. Patient report given, questions answered & plan of care reviewed with RUPERTO Schmid.
[2020-01-06 08:00] VITALS: BP 123/63
[2020-01-06] MEDS: lactobacillus rhamnosus 10,000 MMU CELLS/CAPSULE PO SCH ×2 (10:22→20:07)
[2020-01-06] MEDS: FLUoxetine 20mg capsule PO SCH (10:22)
[2020-01-06] MEDS: heparin, porcine 5000 units/ml vial SQ SCH ×2 (10:23→20:07)
[2020-01-06 11:00] VITALS: BP 123/60
--- NOTE | 2020-01-06 12:27 | NUR ---
Patient with a new ileostomy to the right lower abdomen. Leaking due to bridge. Appliance removed, skin cleansed, and new appliance applied. Patient will need a 4 inch appliance while bridge in place. Will need to ask surgeon how long the bridge needs to stay in place. Eakins ring was used to cover the bridge. A one-piece 4 inch appliance applied. Will come by later to check on seal. Patent educated on site care, skin care and emptying bag. Case management and physician notified of need for home health for care of ostomy appliance while bridge is in place. OSTOMY FACTS: Almost everyone has know of, or met, businessmen, entertainers, athletes, and people from all walks of life who have an ostomy. Ostomates (a person that has an ostomy) can ski, ride horses, bowl, and get healthy exercise in countless ways. Your usual activities of daily living can be resumed as soon as you are able. Gradually you will be able to wear the clothes worn before surgery. With modern pouches, nothing is noticeable under your clothing. It may be difficult at first to believe that an intimate relationship can be possible when one's body has been disfigured by surgery. This is not true. Love, fortunately, is not easily destroyed when it is based on genuine appreciation of a person as a thinking, feeling, reacting human being. AN OSTOMY IS NOT AN IMPAIRMENT!! DEFINITIONS: 1.OSTOMY: An opening that is created by a surgical procedure. The opening is called a "stoma". 2.STOMA: A surgical opening in the abdomen (belly) where intestine is brought through the abdominal wall and connected at the skin level. A stoma is shiny, wet and at first is dark purple but eventually turns pink, similar to the inside lining of your mouth. 3.COLON: A portion of the large bowel. 4.COLOSTOMY: A fecal diversion with an opening, (stoma) created anywhere along the colon. Making a connection between the colon and the abdominal wall. 5.ILLEOSTOMY: A fecal diversion with an opening, (stoma) created in the small intestine. Making a connection between the small intestine and the abdominal wall. 6.UROSTOMY: A urinary diversion with the ureters connected to a segment of the small bowel and one end is brought out and connected to the abdominal wall, creating a stoma. SHAPES and SIZES: "The stoma is usually round or oval. "It is anywhere from a dime to half dollar in size. "A stoma reaches its permanent size 6-8 weeks after surgery. PRODUCTS: 1.POUCH or APPLIANCE: An external device to contain stool or urine output and protect the skin around the stoma. It can be a one piece pouch or two pieces (a pouch and a wafer). 2.BARRIER: Substance that is used to protect the skin around the stoma from drainage and adhesive. 3.SKIN PREP or SEALANT: Product applied to the skin to reduce injury from moisture, drainage, or repeated pouch removal. Available in spray or wipes. 4.CLOSURE or CLAMP: A device used to close the bottom of a drainable pouch. 5.BRIDGE or LEONARD: A piece of plastic placed under a loop of bowel on the skins surface, to secure the bowel in place while the skin heals. POUCH CHANGE PROCEEDURE: 1.Assemble all the supplies "1 or 2 piece appliance "Ostomy paste (if needed) "Ostomy powder (if needed) "Skin prep wipes ( not recommended with coloplast products) "Moist wash cloth or cotton balls 2.Remove plastic center and paper backing from pouch. If pouch or wafer is not precut, use the sizing guide, or plastic backing from pouch to make a pattern. Do this by placing the paper over the stoma and trace it, or draw a pattern. Cut the wafer to fit and set it aside. 3.Remove old pouch by lifting up on tape while pressing skin down away from the tape. If there is a clip on your pouch, remove it and save it. 4.Clean skin or stoma with moistened wash cloth or cotton balls. Place a clean cotton ball over stoma hole to catch any drainage. Let skin dry. 5.For grooves or uneven areas in the skin- apply ostomy paste and sprinkle with ostomy powder, then gently shape the past so the area around the stoma is smooth and as flat as possible. Wipe off or blow away excess. Blot powder with skin prep wipe (DO NOT wipe powder). Let dry until no longer sticky. 6.For irritated or reddened skin- sprinkle ostomy powder on red or irritated area. Wipe off or blow away excess. Blot powder with skin prep wipe (DO NOT wipe powder). Let dry until no longer sticky. 7.Apply skin prep wipe to skin to which the pouch and tape will adhere. Let dry until no longer sticky. 8.If you have a one piece appliance- apply pouch so it is centered around the stoma. No skin should be exposed to stool. All skin should be covered by paste or pouch. 9.If you have a two piece appliance- Apply the wafer as described above, then snap or stick pouch onto wafer. Check to make sure wafer and pouch are securely connected. 10.Place clip on bottom of pouch. 11.Empty pouch when 1/3 full. OSTOMY SKIN CARE: "Good health care and nutrition are essential for healthy skin. "Usually a correct pouch size will prevent skin breakdown. "Use warm water and soap for skin cleansing. "Do not use creams or oil based products on skin around the stoma. This will prevent the appliance from sticking. "Use skin prep around the stoma. IT CAN TAKE 24 HOURS TO SEVERAL DAYS FOR SKIN TO HEAL. IF IT IS NOT RESOLVING, OR GETTING WORSE, CALL YOUR PRIMARY CARE DOCTOR.
--- NOTE | 2020-01-06 18:21 | NUR ---
Patient in room MOE 340. I have received report from Willie HICKEY and had the opportunity to ask questions and assume patient care.
--- NOTE | 2020-01-06 18:45 | NUR ---
Problems reprioritized. Patient report given, questions answered & plan of care reviewed with Noris Rosa.
[2020-01-06 20:00] VITALS: BP 136/76
[2020-01-06] MEDS: insulin glargine (Lantus) pen - multi-dose SQ SCH (21:00)
[2020-01-07] VITALS: BP 130/61
[2020-01-07] MEDS: piperacillin/tazo 3.375gm/50ml 50 ML IV SCH ×4 (00:38→23:27)
--- NOTE | 2020-01-07 06:17 | NUR ---
Problems reprioritized. Patient report given, questions answered & plan of care reviewed with RUPERTO Schmid.
--- NOTE | 2020-01-07 06:20 | NUR ---
Problems reprioritized. Patient report given, questions answered & plan of care reviewed with Sharmaine HICKEY.
--- NOTE | 2020-01-07 06:30 | NUR ---
Patient in room MOE 340. I have received report from Noris Rosa and had the opportunity to ask questions and assume patient care.
[2020-01-07] MEDS: heparin, porcine 5000 units/ml vial SQ SCH ×2 (07:03→19:24)
[2020-01-07] MEDS: lactobacillus rhamnosus 10,000 MMU CELLS/CAPSULE PO SCH ×2 (07:03→19:23)
[2020-01-07] MEDS: FLUoxetine 20mg capsule PO SCH (07:03)
[2020-01-07] MEDS: HYDROcodone/acetaminophen 10/325mg tab PO PRN ×4 (07:05→23:27)
[2020-01-07 08:00] VITALS: BP 128/53
--- NOTE | 2020-01-07 09:28 | NUR ---
PAGER ID: [phone] MESSAGE: Bolivar Vargas#[phone]- Pt has a critical H & H Please advise. Thank you. Sharmaine Ochoa [phone]
--- NOTE | 2020-01-07 10:34 | NUR ---
Student Medication Administration: For this medication-pass time frame, all medication were reviewed, dispensed, administered and documented per hospital policy by Nathan nursing program coordinator.
[2020-01-07 11:00] VITALS: BP 149/70
--- NOTE | 2020-01-07 12:58 | NUR ---
Patient in room MOE 340. I have received report from RUPERTO Schmid and had the opportunity to ask questions and assume patient care.
--- NOTE | 2020-01-07 13:37 | NUR ---
Student documentation: I have reviewed and agree with all interventions, assessments performed and documented by Nathan, geriatric nursing assistant.
--- NOTE | 2020-01-07 17:51 | NUR ---
Problems reprioritized. Patient report given, questions answered & plan of care reviewed with RUPERTO PADILLA.
--- NOTE | 2020-01-07 18:28 | NUR ---
Patient in room MOE 340. I have received report from VALERIE HICKEY and had the opportunity to ask questions and assume patient care.
--- NOTE | 2020-01-07 18:40 | NUR ---
Problems reprioritized. Patient report given, questions answered & plan of care reviewed with Noris HICKEY.
[2020-01-07] MEDS: insulin glargine (Lantus) pen - multi-dose SQ SCH (19:36)
[2020-01-07 20:00] VITALS: BP 123/50
--- NOTE | 2020-01-07 23:45 | NUR ---
midline dressing changed wet to dry as ordered Addendum: 01/08/20 at 0339 by Noris Benson RN Amended: Links added.
[2020-01-08] VITALS: BP 113/58
--- NOTE | 2020-01-08 06:34 | NUR ---
Problems reprioritized. Patient report given, questions answered & plan of care reviewed with RUPERTO Simpson.
[2020-01-08 07:15] VITALS: BP 138/63
[2020-01-08] MEDS: FLUoxetine 20mg capsule PO SCH (07:19)
[2020-01-08] MEDS: lactobacillus rhamnosus 10,000 MMU CELLS/CAPSULE PO SCH (07:19)
[2020-01-08] MEDS: HYDROcodone/acetaminophen 10/325mg tab PO PRN ×2 (07:20→12:25)
[2020-01-08] MEDS: piperacillin/tazo 3.375gm/50ml 50 ML IV SCH (07:21)
[2020-01-08] MEDS: heparin, porcine 5000 units/ml vial SQ SCH (07:21)
--- NOTE | 2020-01-08 08:13 | NUR ---
Student Medication Administration: For this medication-pass time frame, all medication were reviewed, dispensed, administered and documented per hospital policy by Alley Student Nurse.
[2020-01-08] MEDS ORDERED: AMOX-422 PO (11:12)
[2020-01-08] MEDS ORDERED: HYDR-4353 PO (11:12)
[2020-01-08 12:00] VITALS: BP 153/61
--- NOTE | 2020-01-08 13:49 | NUR ---
Patient emptying and taking care of her own ostomy independently. Patient has verbalized that she feels comfortable with taking care of her ostomy appliance on her own.
--- NOTE | 2020-01-08 14:30 | NUR ---
Patient discharged home stable and appropriate with daughter. IV removed, all belongings taken from room. new prescriptions sent to [facility] [place]. Wound care gave patient supplies to care for ostomy prior to discharge. Discharge instructions given and reviewed with patient. Next dose for medications reviewed with patient. Patient verbalized complete understanding, for discharge instructions and ostomy care. Home health is set up for patient. Wound care appointment has been made for patient and she is aware. Dr. Carter office number given to patient to schedule follow up.
== END 2020-01-08 14:30 | disposition home health service (06) | DRG 329 ==
LOC: ER 12:26 → ED HOLD 17:12 → PCU 3S 12-31 00:33 → SUR 3N 01-01 12:28
PROVIDERS: ADMIT Family Medicine; ATTEND Family Medicine
PROC: 0DTN0ZZ Resection of Sigmoid Colon, Open Approach (ICD-10-PCS; 2020-01-02)
PROC: 0D1B0Z4 Bypass Ileum to Cutaneous, Open Approach (ICD-10-PCS; principal; 2020-01-02 15:56)
DX: K57.20 Diverticulitis of large intestine with perforation and abscess without bleeding (principal); K65.0 Generalized (acute) peritonitis; M54.9 Dorsalgia, unspecified; G89.29 Other chronic pain; Z90.710 Acquired absence of both cervix and uterus; Z98.1 Arthrodesis status; Z88.5 Allergy status to narcotic agent
CPT/HCPCS: 36415; 74177; 80048; 80053; 81003; 81025; 82378; 82948; 83690; 85025; 85610; 85730; 87081; 93005; 96374; 99285; A4215; A4421; A4618; A6446; A6449; A7000; C1758; C9290; G0378; J0690; J0694; J1100; J1170; J1644; J1815; J2001; J2175; J2250; J2270; J2405; J2543; J2704; J2710; J3010; J3490; J7030; J7120; Q9963; Q9967

== ENCOUNTER 2020-01-14 10:40 | Day surgery (SDC) | payer MEDICARE ==
[~2020-01-14 10:40] MED LIST changes: -BUDE10.2 INH; -FLUO10CA29 PO; +FLUO20CA39 PO; +HYDR-4353 PO; -METR500T PO; -ONDA4TAB6 PO; -PRAV20TA4 PO; -TEMA15CA PO
[2020-01-14] MEDS ORDERED: LIDOcaine 2% 5ml jelly ONE (11:10)
== END 2020-01-14 13:30 | disposition home or self-care (01) ==
LOC: WOUND CARE 10:40
PROVIDERS: ATTEND Nurse Practitioner
DX: T81.31XA Disruption of external operation (surgical) wound, not elsewhere classified, initial encounter (principal); L98.492 Non-pressure chronic ulcer of skin of other sites with fat layer exposed; J45.909 Unspecified asthma, uncomplicated; G89.29 Other chronic pain; F32.9 Major depressive disorder, single episode, unspecified; Z90.710 Acquired absence of both cervix and uterus; Z98.1 Arthrodesis status; Y92.89 Other specified places as the place of occurrence of the external cause; Y83.8 Other surgical procedures as the cause of abnormal reaction of the patient, or of later complication, without mention of misadventure at the time of the procedure
CPT/HCPCS: 97597; 97598

== ENCOUNTER 2020-01-20 08:30 | Outpatient (CLI) | payer MEDICARE ==
[2020-01-20] MEDS ORDERED: LIDOcaine 2% 5ml jelly ONE (09:02)
[2020-01-20] MEDS ORDERED: FLUO20CA39 PO (22:29)
[2020-01-20] MEDS ORDERED: TRAZ-251 PO (22:38)
== END 2020-01-20 10:31 | disposition home or self-care (01) ==
LOC: WOUND CARE 08:30 → EDSTATUS 09:00 → WOUND CARE 10:31
PROVIDERS: ATTEND Nurse Practitioner Family
DX: T81.31XD Disruption of external operation (surgical) wound, not elsewhere classified, subsequent encounter (principal); L98.492 Non-pressure chronic ulcer of skin of other sites with fat layer exposed; J45.909 Unspecified asthma, uncomplicated; G89.29 Other chronic pain; F32.9 Major depressive disorder, single episode, unspecified; Z90.710 Acquired absence of both cervix and uterus; Z98.1 Arthrodesis status; Y83.8 Other surgical procedures as the cause of abnormal reaction of the patient, or of later complication, without mention of misadventure at the time of the procedure
CPT/HCPCS: 97605

== ENCOUNTER 2020-02-11 09:45 | Day surgery (SDC) | payer MEDICARE ==
[~2020-02-11 09:45] MED LIST changes: +ONDA4TAB6 PO; +TRAZ-251 PO
[2020-02-11] MEDS ORDERED: LIDOcaine 2% 5ml jelly ONE (10:09)
[2020-02-12] MEDS ORDERED: FLUO-1 PO (17:00)
== END 2020-02-11 10:45 | disposition home or self-care (01) ==
LOC: WOUND CARE 09:45
PROVIDERS: ATTEND Nurse Practitioner
DX: T81.31XD Disruption of external operation (surgical) wound, not elsewhere classified, subsequent encounter (principal); L98.492 Non-pressure chronic ulcer of skin of other sites with fat layer exposed; J45.909 Unspecified asthma, uncomplicated; G89.29 Other chronic pain; F32.9 Major depressive disorder, single episode, unspecified; Z90.710 Acquired absence of both cervix and uterus; Z98.1 Arthrodesis status; Y83.8 Other surgical procedures as the cause of abnormal reaction of the patient, or of later complication, without mention of misadventure at the time of the procedure
CPT/HCPCS: 97597

== ENCOUNTER 2020-02-25 11:08 | Day surgery (SDC) | payer MEDICARE ==
[~2020-02-25 11:08] MED LIST changes: +AMOX-419 PO; -AMOX-422 PO; -HYDR-4353 PO; +LACT-237 PO; +LACT1CAP26 PO; -ONDA4TAB6 PO
[2020-02-25] MEDS ORDERED: LIDOcaine 2% 5ml jelly ONE (11:39)
== END 2020-02-25 11:58 | disposition home or self-care (01) ==
LOC: WOUND CARE 11:08
PROVIDERS: ATTEND Nurse Practitioner
DX: T81.31XD Disruption of external operation (surgical) wound, not elsewhere classified, subsequent encounter (principal); L98.492 Non-pressure chronic ulcer of skin of other sites with fat layer exposed; J45.909 Unspecified asthma, uncomplicated; E11.22 Type 2 diabetes mellitus with diabetic chronic kidney disease; N18.9 Chronic kidney disease, unspecified; G89.4 Chronic pain syndrome; M54.9 Dorsalgia, unspecified; E87.6 Hypokalemia; E44.0 Moderate protein-calorie malnutrition; F41.8 Other specified anxiety disorders; F32.9 Major depressive disorder, single episode, unspecified; Z90.710 Acquired absence of both cervix and uterus; Z98.1 Arthrodesis status; Z90.49 Acquired absence of other specified parts of digestive tract; Z68.29 Body mass index [BMI] 29.0-29.9, adult; Z96.82 Presence of neurostimulator; Y83.8 Other surgical procedures as the cause of abnormal reaction of the patient, or of later complication, without mention of misadventure at the time of the procedure
CPT/HCPCS: 97597

== ENCOUNTER 2020-03-03 11:22 | Outpatient (CLI) | payer MEDICARE | END 2020-03-03 13:07 | disposition home or self-care (01) | LOC: WOUND CARE 11:22 → EDSTATUS 11:40 → WOUND CARE 13:07 | PROVIDERS: ATTEND Nurse Practitioner | DX: T81.31XD Disruption of external operation (surgical) wound, not elsewhere classified, subsequent encounter (principal); L98.492 Non-pressure chronic ulcer of skin of other sites with fat layer exposed; J45.909 Unspecified asthma, uncomplicated; E11.22 Type 2 diabetes mellitus with diabetic chronic kidney disease; N18.9 Chronic kidney disease, unspecified; G89.4 Chronic pain syndrome; M54.9 Dorsalgia, unspecified; E87.6 Hypokalemia; E44.0 Moderate protein-calorie malnutrition; F41.8 Other specified anxiety disorders; F32.9 Major depressive disorder, single episode, unspecified; Z90.710 Acquired absence of both cervix and uterus; Z98.1 Arthrodesis status; Z90.49 Acquired absence of other specified parts of digestive tract; Z68.29 Body mass index [BMI] 29.0-29.9, adult; Z96.82 Presence of neurostimulator; Y83.8 Other surgical procedures as the cause of abnormal reaction of the patient, or of later complication, without mention of misadventure at the time of the procedure | CPT/HCPCS: G0463 ==

== ENCOUNTER 2020-03-03 13:11 | Emergency (ER) | payer MEDICARE ==
[~2020-03-03] VITALS: Ht 170.2 cm; Wt 84.8 kg
[2020-03-03 13:57] LABS: EOSINOPHILS # (AUTO) 0.2 X10'3 (0-0.9); HEMOGLOBIN 11.5 g/dl (12.0-16.0); LYMPHOCYTES # (AUTO) 3.2 X10'3 (1.1-4.8); MEAN CORPUSCULAR HEMOGLOBIN 28.1 PG (27.0-31.0); MEAN PLATELET VOLUME 8.4 FL (7.4-10.4); MONOCYTES # (AUTO) 0.5 X10'3 (0-0.9)
[2020-03-03 13:58] LABS: BASOPHILS % (AUTO) 0.5 % (0-1); EOSINOPHILS % (AUTO) 2.2 % (0-6); LYMPHOCYTES % (AUTO) 40.7 % (21-51); MEAN CORPUSCULAR HGB CONC 31.9 g/dL (33.0-36.5); MEAN CORPUSCULAR VOLUME 88.2 FL (78-98); NEUTROPHILS % (AUTO) 50.6 % (42-75); PLATELET COUNT 344 X10'3 (140-440); RED BLOOD COUNT 4.08 X10'6 (4.20-5.60); RED CELL DISTRIBUTION WIDTH 15.7 % (11.5-14.5)
[2020-03-03 14:10] LABS: ALANINE AMINOTRANSFERASE 32 U/L (12-78); ALBUMIN 3.1 G/DL (3.4-5.0); ALBUMIN/GLOBULIN RATIO 0.7 (1.1-1.5); ALKALINE PHOSPHATASE 87 IU/L (46-116); ANION GAP 6 (8-16); ASPARTATE AMINO TRANSFERASE 21 U/L (10-37); BILIRUBIN,TOTAL 0.4 MG/DL (0.1-1.0); BLOOD UREA NITROGEN 10 MG/DL (7-18); BUN/CREATININE RATIO 13.3 (6.6-38.0); CHLORIDE 103 MMOL/L (99-107); CREATININE 0.75 MG/DL (0.40-0.90); GLUCOSE 110 MG/DL (70-104); POTASSIUM 3.7 MMOL/L (3.5-5.1); SODIUM 138 MMOL/L (135-145); TOTAL CARBON DIOXIDE 28.6 MMOL/L (24-32); TOTAL PROTEIN 7.5 G/DL (6.4-8.2); eGFR 78 ML/MIN
[2020-03-03] MEDS ORDERED: iohexol 300mg/ml 100ml inj. ONE (17:58)
[2020-03-03] MEDS ORDERED: vancomycin/NS 1 GM ADD-VANTAGE 250 ML IV ONE (19:00)
[2020-03-03] MEDS ORDERED: piperacillin/tazo 4.5gm/100ml 100 ML IV ONE (19:00)
[2020-03-03] MEDS ORDERED: oxyCODONE IR 5mg (immed. release) tablet PO ONE (19:25)
[2020-03-03 20:00] VITALS: BP 150/85
--- NOTE | 2020-03-03 20:03 | NUR ---
SBA TO NATHANIEL. PT READY FOR DC ONCE VANCOMYCIN INFUSED. PAIN NOW 6 OUT OF 10 AFTER GETTING OXYCODONE. HER DAUGHER WILL PICK HER UP FOR DC.
== END 2020-03-03 20:52 | disposition home or self-care (01) ==
LOC: ER 13:12
DX: G89.18 Other acute postprocedural pain (principal); L08.89 Other specified local infections of the skin and subcutaneous tissue; Z90.49 Acquired absence of other specified parts of digestive tract; Z88.5 Allergy status to narcotic agent
CPT/HCPCS: 36415; 74177; 80053; 83605; 84145; 85025; 87040; 96365; 99285; J3370; Q9967

== ENCOUNTER 2020-03-04 10:00 | Outpatient (CLI) | payer MEDICARE ==
[2020-03-04] MEDS ORDERED: LIDOcaine/PRILOcaine 5gm cream TP ONE (10:36)
[2020-03-04] MEDS ORDERED: tPA-cathflo 2 MG/2 ml IV flush ONE (10:49)
== END 2020-03-04 13:10 | disposition home or self-care (01) ==
LOC: EDSTATUS 10:00 → WOUND CARE 10:00
PROVIDERS: ATTEND Nurse Practitioner
DX: T81.49XA Infection following a procedure, other surgical site, initial encounter (principal); T81.31XD Disruption of external operation (surgical) wound, not elsewhere classified, subsequent encounter; L98.492 Non-pressure chronic ulcer of skin of other sites with fat layer exposed; J45.909 Unspecified asthma, uncomplicated; E11.22 Type 2 diabetes mellitus with diabetic chronic kidney disease; N18.9 Chronic kidney disease, unspecified; G89.4 Chronic pain syndrome; M54.9 Dorsalgia, unspecified; E87.6 Hypokalemia; E44.0 Moderate protein-calorie malnutrition; F41.8 Other specified anxiety disorders; F32.9 Major depressive disorder, single episode, unspecified; Z90.710 Acquired absence of both cervix and uterus; Z98.1 Arthrodesis status; Z90.49 Acquired absence of other specified parts of digestive tract; Z68.29 Body mass index [BMI] 29.0-29.9, adult; Z96.82 Presence of neurostimulator; Y83.8 Other surgical procedures as the cause of abnormal reaction of the patient, or of later complication, without mention of misadventure at the time of the procedure; B96.1 Klebsiella pneumoniae [K. pneumoniae] as the cause of diseases classified elsewhere
CPT/HCPCS: 49406; 87070; 87077; 87186; C1729; C1769; G0463; J2997

== ENCOUNTER 2020-03-27 12:29 | Emergency (ER) | payer MEDICARE ==
[~2020-03-27] VITALS: Ht 167.6 cm; Wt 84.5 kg
[~2020-03-27 12:29] MED LIST changes: -AMOX-419 PO
[2020-03-27 13:04] LABS: BASOPHILS # (AUTO) 0.1 X10'3 (0-0.2); BASOPHILS % (AUTO) 1.1 % (0-1); EOSINOPHILS # (AUTO) 0.2 X10'3 (0-0.9); EOSINOPHILS % (AUTO) 2.3 % (0-6); HEMATOCRIT 37.9 % (35.0-45.0); HEMOGLOBIN 12.2 g/dl (12.0-16.0); LYMPHOCYTES % (AUTO) 44.9 % (21-51); MEAN CORPUSCULAR HEMOGLOBIN 28.4 PG (27.0-31.0); MEAN CORPUSCULAR HGB CONC 32.2 g/dL (33.0-36.5); MEAN PLATELET VOLUME 8.3 FL (7.4-10.4); MONOCYTES # (AUTO) 0.4 X10'3 (0-0.9); MONOCYTES % (AUTO) 5.9 % (2-12); NEUTROPHILS # (AUTO) 3.1 X10'3 (1.8-7.7); NEUTROPHILS % (AUTO) 45.8 % (42-75); PLATELET COUNT 279 X10'3 (140-440); RED BLOOD COUNT 4.31 X10'6 (4.20-5.60); RED CELL DISTRIBUTION WIDTH 16.3 % (11.5-14.5); WHITE BLOOD COUNT 6.7 X10'3 (4.5-11.0)
[2020-03-27 13:21] LABS: ALANINE AMINOTRANSFERASE 31 U/L (12-78); ALBUMIN 3.4 G/DL (3.4-5.0); ALBUMIN/GLOBULIN RATIO 0.8 (1.1-1.5); ALKALINE PHOSPHATASE 69 IU/L (46-116); ANION GAP 8 (8-16); ASPARTATE AMINO TRANSFERASE 22 U/L (10-37); BILIRUBIN,TOTAL 0.3 MG/DL (0.1-1.0); BLOOD UREA NITROGEN 10 MG/DL (7-18); BUN/CREATININE RATIO 11.5 (6.6-38.0); CALCIUM 9.6 MG/DL (8.5-10.1); CHLORIDE 104 MMOL/L (99-107); CREATININE 0.87 MG/DL (0.40-0.90); GLUCOSE 125 MG/DL (70-104); SODIUM 140 MMOL/L (135-145); TOTAL CARBON DIOXIDE 28.5 MMOL/L (24-32); TOTAL PROTEIN 7.8 G/DL (6.4-8.2); eGFR 66 ML/MIN
[2020-03-27] MEDS ORDERED: diazepam 5mg tablet PO ONE ×2 (14:10→16:20)
[2020-03-27] MEDS: diatr meglu/diatrizoate 30ml oral sol.-(3 dose) bottle PO SCH ×3 (14:35→17:06)
[2020-03-27] MEDS ORDERED: acetaminophen 325mg tablet PO ONE (16:20)
[2020-03-27] MEDS ORDERED: MECL-184 PO (16:57)
[2020-03-27] MEDS ORDERED: iohexol 300mg/ml 100ml inj. ONE (17:00)
[2020-03-27 18:33] VITALS: BP 129/71
== END 2020-03-27 18:35 | disposition home or self-care (01) ==
LOC: ER 12:30
DX: R42 Dizziness and giddiness (principal); R10.31 Right lower quadrant pain; R51 Headache; Z90.49 Acquired absence of other specified parts of digestive tract; Z72.89 Other problems related to lifestyle; Z98.890 Other specified postprocedural states; Z88.5 Allergy status to narcotic agent; Z79.899 Other long term (current) drug therapy
CPT/HCPCS: 36415; 70450; 71045; 74177; 80053; 83880; 84484; 85025; 93005; 99285; Q9963; Q9967

== ENCOUNTER 2022-02-23 06:27 | Day surgery (SDC) | payer MEDICARE ==
[2022-02-23] VITALS (15 sets, daily range): BP systolic 106–136; BP diastolic 57–85
[~2022-02-23] VITALS: Ht 167.6 cm; Wt 88.3 kg
[~2022-02-23 06:27] MED LIST changes: +ACET-1025 PO; -FLUO20CA39 PO; -LACT-237 PO; -LACT1CAP26 PO; +MULT-1085 PO; +NORCO PO; +[UNRECOGNIZED DRUG - CODE] PO; +ceFAZolin inj. 2,000 MG in dextrose 5%-water 100 ML IV ONE; +famotidine 20mg tablet PO ONE
[2022-02-23 07:56] LABS: BASOPHILS % (AUTO) 0.8 % (0-1); EOSINOPHILS # (AUTO) 0.2 X10'3 (0-0.9); EOSINOPHILS % (AUTO) 3.4 % (0-6); HEMATOCRIT 39.2 % (35.0-45.0); HEMOGLOBIN 12.8 g/dl (12.0-16.0); LYMPHOCYTES # (AUTO) 1.9 X10'3 (1.1-4.8); LYMPHOCYTES % (AUTO) 35.5 % (21-51); MEAN CORPUSCULAR HEMOGLOBIN 28.7 PG (27.0-31.0); MEAN CORPUSCULAR HGB CONC 32.5 g/dL (33.0-36.5); MEAN CORPUSCULAR VOLUME 88.3 FL (78-98); MEAN PLATELET VOLUME 8.2 FL (7.4-10.4); MONOCYTES # (AUTO) 0.4 X10'3 (0-0.9); MONOCYTES % (AUTO) 8.1 % (2-12); NEUTROPHILS # (AUTO) 2.8 X10'3 (1.8-7.7); NEUTROPHILS % (AUTO) 52.2 % (42-75); PLATELET COUNT 248 X10'3 (140-440); RED BLOOD COUNT 4.44 X10'6 (4.20-5.60); RED CELL DISTRIBUTION WIDTH 14.6 % (11.5-14.5); WHITE BLOOD COUNT 5.4 X10'3 (4.5-11.0)
[2022-02-23 08:04] LABS: ALANINE AMINOTRANSFERASE 17 U/L (12-78); ALBUMIN 2.9 G/DL (3.4-5.0); ALBUMIN/GLOBULIN RATIO 0.8 (1.1-1.5); ALKALINE PHOSPHATASE 77 IU/L (46-116); ANION GAP 9 (8-16); ASPARTATE AMINO TRANSFERASE 14 U/L (10-37); BILIRUBIN,TOTAL 0.3 MG/DL (0.1-1.0); BLOOD UREA NITROGEN 9 MG/DL (7-18); BUN/CREATININE RATIO 10.7 (6.6-38.0); CALCIUM 8.8 MG/DL (8.5-10.1); CHLORIDE 108 MMOL/L (99-107); CREATININE 0.84 MG/DL (0.40-0.90); GLUCOSE 145 MG/DL (70-104); POTASSIUM 3.7 MMOL/L (3.5-5.1); SODIUM 143 MMOL/L (135-145); TOTAL CARBON DIOXIDE 26.1 MMOL/L (24-32); TOTAL PROTEIN 6.7 G/DL (6.4-8.2); eGFR 68 ML/MIN
[2022-02-23 08:56] LABS: CLARITY,URINE SLIGHTLY CLOUDY (Clear); COLOR,URINE YELLOW (Yellow); GLUCOSE, URINE NEGATIVE (Neg); KETONES,URINE NEGATIVE (Neg); LEUKOCYTE ESTERASE ,URINE NEGATIVE (Neg); NITRITES, URINE NEGATIVE (Neg); OCCULT BLOOD,URINE NEGATIVE (Neg); PROTEIN,URINE NEGATIVE (Neg); UROBILINOGEN,URINE 0.2 E.U/dL (0.2-1.0)
[2022-02-23 08:59] LABS: UA COLLECTION TYPE CLN CATCH MIDSTREAM
[2022-02-23 09:01] LABS: BACTERIA,URINE 2+ /HPF (Neg); SQUAMOUS EPITHELIAL CELL,UR FEW /LPF (FEW)
[2022-02-23 09:02] LABS: RBC,URINE 0-2 /HPF (0-2); WBC,URINE 0-4 /HPF (0-4)
[2022-02-23] MEDS ORDERED: acetaminophen 1000 MG/100ml vial IV ONE (10:15)
[2022-02-23] MEDS ORDERED: sevoflurane 250ml liquid IH ONE (10:15)
[2022-02-23] MEDS ORDERED: fentaNYL/PF 50MCG/1 ML 2ML syringe ONE (10:18)
[2022-02-23] MEDS ORDERED: midazolam 1 mg/ML 2ml injection ONE (10:19)
[2022-02-23] MEDS ORDERED: BUPIVAcaine/PF 2.5mg/ml (0.25%) 10ml vial ONE (10:42)
[2022-02-23] MEDS ORDERED: dexamethasone sod phosphate 4mg/ml inj. ONE (10:45)
[2022-02-23] MEDS ORDERED: LIDOcaine 2% (20mg/ml) 5ml vial ONE (10:45)
[2022-02-23] MEDS ORDERED: neostigmine methylsulfate 1 MG/ML 10ml vial ONE (10:45)
[2022-02-23] MEDS ORDERED: rocuronium 10mg/ml inj IV ONE (10:45)
[2022-02-23] MEDS ORDERED: propofol inj 20 ML IV ONE (10:45)
[2022-02-23] MEDS ORDERED: ondansetron/PF 4mg/2ml inj ONE (10:45)
[2022-02-23] MEDS ORDERED: glycopyrrolate 0.2mg/ml inj ONE (10:45)
--- NOTE | 2022-02-23 11:25 | NUR ---
Received from OR via [facility] , accompanied by Anesthesiologist DR RAMIREZ and report given by Anesthesiolgist. PT WAKES EASILY TO VERBL STIMULI AND FOLLOWS COMMANDS. PT PLACED ON BEDSIDE MONITOR, VSS. PT RECEIVING 8L O2 TO NC AND TOLERATING WELL, O2 SAT > 96%, WILL TITRATE D0WN PT TOLERATES. PT HAS 20G PIV TO LT AC WITH LR INFUSING @ 100ML/HR. PT C/O PAIN, WILL VERIFY ORDERS AND TREAT. DRSG TO RT ANTERIOR LATERAL ABD IS CDI. WILL CONTINUE TO ASSESS.
[2022-02-23] MEDS ORDERED: ondansetron/PF 4mg/2ml inj IV PRN (11:45)
[2022-02-23] MEDS ORDERED: morphine 4 MG/ML inj SYRINge IV PRN (11:45)
[2022-02-23] MEDS ORDERED: proCHLORperazine 10 MG/2 ml inj IV PRN (11:45)
[2022-02-23] MEDS ORDERED: ringers solution, lacted 1,000 ML IV SCH (11:45)
[2022-02-23] MEDS ORDERED: morphine 2 MG/ML inj. syringe IV PRN (11:45)
[2022-02-23] MEDS ORDERED: meperidine/PF 25mg/ml syringe IV PRN ×3 (11:45)
[2022-02-23] MEDS ORDERED: HYDROcodone/acetaminophen 10/325mg tab PO ONE (13:15)
--- NOTE | 2022-02-23 13:48 | NUR ---
ALL DISCHARGE CRITERIA HAS BEEN MET. VSS, PAIN AT A TOLERABLE LEVEL, VOIDING AND ABLE TO SAFELY AMBULATE AND TRANSFER SELF. IV TAKEN OUT WITHOUT ANY COMPLICATIONS. ALL DISCHARGE INSTRUCTIONS COVERED WITH PATIENT AND ALL QUESTIONS ANSWERED. PATIENT TAKEN OUT VIA WHEELCHAIR TO PERSONAL VEHICLE WHERE DROVE PATIENT HOME.
[2022-02-24] MEDS ORDERED: ringers solution, lacted 1,000 ML IV SCH (05:00)
== END 2022-02-23 13:48 | disposition home or self-care (01) ==
LOC: PAS 06:27
PROVIDERS: ATTEND Surgery
DX: S30.1XXA Contusion of abdominal wall, initial encounter (principal); E11.9 Type 2 diabetes mellitus without complications; X58.XXXA Exposure to other specified factors, initial encounter; Y93.89 Activity, other specified; Y92.89 Other specified places as the place of occurrence of the external cause; Y99.8 Other external cause status; Z90.49 Acquired absence of other specified parts of digestive tract; Z98.890 Other specified postprocedural states; Z79.899 Other long term (current) drug therapy; Z85.038 Personal history of other malignant neoplasm of large intestine; Z88.6 Allergy status to analgesic agent
CPT/HCPCS: 22903; 36415; 80053; 81001; 82948; 85025; J0131; J0690; J1100; J2175; J2250; J2405; J2704; J2710; J3010; J3490; J7030; J7060; J7120; Z7506; Z7508; Z7512; A4618; A7000